=== PATIENT | female | born 1985 | race Caucasian/White ===

== ENCOUNTER 2019-04-18 12:29 | Emergency (ER) | payer MEDICAID ==
[~2019-04-18] VITALS: Ht 175.3 cm; Wt 59.0 kg
[2019-04-18 12:30] VITALS: BP_SYST 121
--- NOTE | 2019-04-18 12:30 | NUR ---
Patient triaged and placed in waiting room. VSS and patient appears in no acute distress at this time. Accompanied by MOTHER AND SON, awaiting available bed, and MD notified of need for MSE.
--- NOTE | 2019-04-18 12:35 | NUR ---
Pt brought by self, A&Ox4, pt presents to ER with pain and burning with urination , pt is afebrile, skin pink and warm, cap refill <3, respirations even and unlabored.
--- NOTE | 2019-04-18 14:15 | NUR ---
Patient to ER bed 7 to gown for evaluation. Side rails up.
[2019-04-18 14:41] LABS: BILIRUBIN,URINE NEGATIVE (NEGATIVE); BLOOD, URINE 3+ (NEGATIVE); CLARITY/URINE CLOUDY (CLEAR); COLOR,URINE YELLOW (YELLOW); GLUCOSE,URINE NEGATIVE (NEGATIVE); KETONES,URINE NEGATIVE (NEGATIVE); LEUKOCYTE ESTERASE ,URINE 3+ (NEGATIVE); NITRITE, URINE POSITIVE (NEGATIVE); PROTEIN URINE 2+ (NEGATIVE); UROBILINOGEN,URINE 0.2 (0.2-1.0)
[2019-04-18 14:50] LABS: HCG,QUAL RESULT NEGATIVE (NEGATIVE)
--- NOTE | 2019-04-18 14:50 | NUR ---
ER Dr. NAGEL at bedside examining patient.
[2019-04-18 14:54] LABS: BACTERIA,URINE MANY /HPF (None Seen); MUCUS,URINE 1+ /LPF (None Seen); RBC,URINE 20-50 /HPF (0-3); WBC,URINE >100 /HPF (0-3)
--- NOTE | 2019-04-18 15:08 | NUR ---
Patient given written and verbal discharge instructions and verbalizes understanding. ER MD discussed with patient the results and treatment provided. Patient in stable condition. ID arm band removed. Rx of PYRIDIUM AND MACROBID given. Patient educated on pain management and to follow up with PMD. Pain Scale 3/10 TOLERABLE. Opportunity for questions provided and answered. Medication side effect fact sheet provided.
[2019-04-18 15:11] VITALS: BP_SYST 121
== END 2019-04-18 15:08 | disposition home or self-care (01) ==
LOC: SED 12:29
DX: N39.0 Urinary tract infection, site not specified (principal); Z91.048 Other nonmedicinal substance allergy status; Z91.041 Radiographic dye allergy status
CPT/HCPCS: 81000-TC; 81025; 84703; 87086; 87186-TC; 99283

== ENCOUNTER 2019-04-19 14:27 | Emergency (ER) | payer MEDICAID ==
[~2019-04-19] VITALS: Ht 180.3 cm; Wt 77.1 kg
[2019-04-19 14:34] VITALS: BP_SYST 125
--- NOTE | 2019-04-19 14:38 | NUR ---
TPatient triaged and placed in waiting room. VSS and patient appears in no acute distress at this time. Accompanied by visitor, awaiting available bed, and MD notified of need for MSE.
[2019-04-19] MEDS ORDERED: NACL 0.9% 1,000 ML IV ONE (15:30)
--- NOTE | 2019-04-19 15:52 | NUR ---
Patient to ER bed 06 to gown for evaluation. Side rails up.
--- NOTE | 2019-04-19 15:58 | NUR ---
Patient to ER bed 06 for evaluation. Side rails up. Report given to Isaias STEVENSON.
[2019-04-19] MEDS ORDERED: cefTRIAXone 1 GM in D5W 50 ML IV ONE (16:00)
--- NOTE | 2019-04-19 16:00 | NUR ---
CAILIN Boo at bedside examining patient.
--- NOTE | 2019-04-19 16:00 | NUR ---
temp 101.7. SEGUN Calderon made aware
[2019-04-19 16:08] LABS: HCG,QUAL RESULT NEGATIVE (NEGATIVE)
[2019-04-19] MEDS ORDERED: ACETAMINOPHEN 500 MG TABLET PO ONE (16:15)
[2019-04-19] MEDS ORDERED: ONDANSETRON HCL 4 MG/2 ML VIAL IVP ONE (16:15)
[2019-04-19 16:19] LABS: BILIRUBIN,URINE 3+ (NEGATIVE); BLOOD, URINE 3+ (NEGATIVE); CLARITY/URINE CLEAR (CLEAR); COLOR,URINE ORANGE (YELLOW); GLUCOSE,URINE NEGATIVE (NEGATIVE); KETONES,URINE NEGATIVE (NEGATIVE); NITRITE, URINE NEGATIVE (NEGATIVE); PROTEIN URINE 2+ (NEGATIVE)
[2019-04-19] MEDS ORDERED: cefTRIAXone 1 GM VIAL ONE (16:22)
[2019-04-19] MEDS ORDERED: ONDANSETRON HCL 4 MG/2 ML VIAL ONE (16:22)
[2019-04-19 16:24] LABS: BACTERIA,URINE FEW /HPF (None Seen); LEUKOCYTE ESTERASE ,URINE 3+ (NEGATIVE); WBC,URINE 20-50 /HPF (0-3)
[2019-04-19 16:33] LABS: BASOPHILS # (AUTO) 0.1 K/uL (0.0-0.2); BASOPHILS % (AUTO) 0.3 % (0.0-2.0); HEMATOCRIT 29.2 % (36-48); LYMPHOCYTES # (AUTO) 0.6 K/uL (1.0-5.5); LYMPHOCYTES % (AUTO) 3.8 % (20.5-51.5); MEAN CORPUSCULAR HEMOGLOBIN 20 pg (27-31); MEAN CORPUSCULAR HGB CONC 31 % (32-36); MEAN CORPUSCULAR VOLUME 67 fL (79.0-98.0); MONOCYTES # (AUTO) 1.4 K/uL (0.0-1.0); MONOCYTES % (AUTO) 8.1 % (1.7-9.3); NEUTROPHILS # (AUTO) 14.8 K/uL (1.8-7.7); NEUTROPHILS % (AUTO) 87.8 % (40.0-70.0); PLATELET COUNT (AUTO) 327 K/uL (130-430); RED BLOOD CELL COUNT(AUTO) 4.38 MIL/uL (4.2-6.2); RED CELL DISTRIBUTION WIDTH 18.2 % (9.0-15.0); WHITE BLOOD COUNT (AUTO) 16.8 K/uL (4.8-10.8)
--- NOTE | 2019-04-19 16:34 | NUR ---
Pt medicated pt tolerated well.
[2019-04-19 16:41] LABS: CALCIUM 8.6 mg/dL (8.4-11.0); CREATININE 1.05 mg/dL (0.55-1.30); POTASSIUM 3.7 mmol/L (3.5-5.1)
[2019-04-19 16:47] LABS: ALBUMIN 3.3 g/dL (3.4-4.8); TOTAL BILIRUBIN 0.6 mg/dL (0.0-1.0)
[2019-04-19] MEDS ORDERED: KETOROLAC TROMETHAMINE 30 MG VIAL ONE (17:38)
[2019-04-19] MEDS ORDERED: KETOROLAC TROMETHAMINE 30 MG VIAL IVP ONE (17:45)
--- NOTE | 2019-04-19 17:53 | NUR ---
Pt reports pain resolving, pain tolerable at this time.
--- NOTE | 2019-04-19 18:15 | NUR ---
temp 98.2F
[2019-04-19 18:45] VITALS: BP_SYST 124
--- NOTE | 2019-04-19 18:45 | NUR ---
Patient given written and verbal discharge instructions and verbalizes understanding. ER MD discussed with patient the results and treatment provided. Patient in stable condition. ID arm band removed. IV catheter removed intact and dressing applied, no active bleeding. Rx of cipro,motrin,tylenol given. Patient educated on pain management and to follow up with PMD. Pain Scale []. Opportunity for questions provided and answered. Medication side effect fact sheet provided.
== END 2019-04-19 18:45 | disposition home or self-care (01) ==
LOC: SED 14:27
DX: N10 Acute pyelonephritis (principal); D64.9 Anemia, unspecified; R03.0 Elevated blood-pressure reading, without diagnosis of hypertension; Z91.041 Radiographic dye allergy status; Z91.048 Other nonmedicinal substance allergy status
CPT/HCPCS: 36415; 74176; 80053; 81000; 81025; 83690; 83605; 84703; 85025; 87040; 87086; 96365; 96375; 99284; J0696; J1885; J2405; J7030